=== PATIENT | female | born 1965 | race Caucasian/White ===

== ENCOUNTER 2021-03-18 18:44 | Emergency (ER) | payer OTHER, SELFPAY ==
--- NOTE | ~2021-03-18 | CT_ITS ---
EXAMINATION: CT abdomen pelvis wo con DATE: 03/18/2021 22:49 INDICATION: Epigastric pain TECHNIQUE: Computed tomography (CT) of the abdomen and pelvis was performed without intravenous contr ast. The dose-length product was 947.74 mGy-cm. Automated exposure control and iterative reconstructi on technique were employed. COMPARISON: None. FINDINGS: Lung bases are unremarkable. Heart size normal. No significant pleural or pericardial effus ion. Gallbladder is distended with subtle pericholecystic fatty infiltration, suspicious for cholecys titis. The liver, spleen, pancreas, adrenal glands and kidneys are unremarkable. There is a duodenal diverticulum. No renal stones or hydronephrosis. Nonobstructive bowel gas pattern. No free air or free fluid. Moder ate lumbar spondylosis. IMPRESSION: 1. Gallbladder distention with subtle pericholecystic fatty infiltration. Consider cholecystitis in t he appropriate clinical setting. Consider correlation with ultrasound. Reviewed, dictated and finalized at location A. IMPRESSION: 1. Gallbladder distention with subtle pericholecystic fatty infiltration. Consi marysol cholecystitis in the appropriate clinical setting. Consider correlation wit h ultrasound.
[2021-03-18 18:47] VITALS: BP 141/100; PULSE 93; RESP 20; TEMP 36.6; O2SAT 100
[2021-03-18 19:14] LABS: Basophils Percent Auto 0.2 % (0.2-1.2); Eosinophils Absolute Auto 0.1 K/mm3 (0-0.3); Eosinophils Percent Auto 0.9 % (0-4.4); Hematocrit 36.7 % (37.0-47.0); Hemoglobin 11.3 g/dL (12.0-15.0); Immature Granulocyte Absolute 0.02 K/mm3 (0.00-0.031); Immature Granulocyte Percent A 0.2 % (0-0.5); Lymphocytes Absolute Auto 1.71 K/mm3 (0.9-3.2); Lymphocytes Percent Auto 16.9 % (18.3-44.2); Mean Corpuscular HGB Conc 30.8 g/dl (32-36); Mean Corpuscular Hemoglobin 26.2 pg (26-34); Mean Platelet Volume 9.2 fl (7.4-10.4); Monocytes Absolute Auto 0.5 K/mm3 (0.1-0.6); Neutrophils Absolute Auto 7.8 K/mm3 (1.3-6.7); Neutrophils Percent Auto 76.8 % (45.5-73.1); Platelet Count Result 354 k/mm3 (150-375); Red Blood Count 4.32 M/mm3 (4.2-5.4); Red Cell Distribution Width 13.2 % (11.5-14.5); White Blood Count 10.1 K/mm3 (4.5-10.0)
[2021-03-18 19:26] LABS: Alanine Aminotransferase 16 U/L (4-35); Albumin Level 4.2 g/dL (3.5-5.1); Alkaline Phosphatase 115 U/L (38-126); Anion Gap 8 mmol/L (8-16); Aspartate Amino Transferase 20 U/L (14-36); Bilirubin,Total 0.3 mg/dL (0.2-1.3); Blood Urea Nitrogen 18 mg/dL (7-17); Calcium 9.6 mg/dL (8.4-10.2); Carbon Dioxide 29 mmol/L (22-30); Chloride 100 mmol/L (98-107); Estimated CRCL calculation 46 ml/min; Estimated Glomerular Filt Rate 47; Glucose 175 mg/dL (65-110); Lipase 104 U/L (23-300); Sodium 137 mmol/L (137-145)
[2021-03-18 20:17] LABS: Add Urine Microscopic? YES; Appearance Urine Clear (Clear); Bilirubin Urine Negative (Negative); Blood Urine Negative (Negative); Color Urine Yellow (Yellow); Glucose Urine UA Negative (Negative); Ketones Urine Negative (Negative); Leukocyte Esterase Ur Trace LEU/UL (Negative); Mucus Urine Few /lpf; Nitrate Urine Negative (Negative); Protein Urine 1+ mg/dL (Negative); RBC Urine 0-2 /hpf (0-2); Specific Grav Ur 1.026 (1.001-1.035); Squamous Epithelial Cell Urine Moderate /hpf (Few); Urobilinogen Urine Negative mg/dL (<2.0)
[2021-03-18 20:59] LABS: Troponin I < 0.012 ng/mL (0.000-0.034)
--- NOTE | 2021-03-18 20:59 | ED.ABDPAIN ---
HPI - Abdominal Pain General Chief Complaint: Abdominal Pain Stated Complaint: ABD PAIN Time Seen by Provider: 03/18/21 20:11 Source: patient Mode of arrival: ambulatory Limitations: no limitations History of Present Illness HPI narrative: 55-year-old female Patient has stage I uterine cancer and is scheduled for surgery in 2 weeks although I do not see any imaging in the EMR from here She reports onset of epigastric pain around noon today which might have started after she ate yogurt for a late breakfast but which very clearly got worse around 3:00 after she had a ham and salami sandwich She is nauseated but not vomiting, no diarrhea, no fever, no urinary symptoms She did not try taking anything for her symptoms Reports that now she has some pain radiating to her upper back on the right side as well No prior abdominal operations, she does not smoke, she drinks occasionally but not lately Related Data Home Medications Medication Instructions Recorded Confirmed alprazolam 03/18/21 bupropion HCl mg PO 03/18/21 fluticasone propionate INTRANASAL 03/18/21 insulin glargine-lixisenatide SUBCUT 03/18/21 [Soliqua 100/33] linagliptin [Tradjenta] mg 03/18/21 montelukast mg 03/18/21 omeprazole 03/18/21 Allergies Allergy/AdvReac Type Severity Reaction Status Date / Time No Known Allergies Allergy Mild Verified 03/18/21 20:03 Review of Systems Review of Systems: All systems reviewed & are unremarkable except as noted in HPI and below Constitutional: Constitutional: Reports no additional constitutional complaints, Denies chills, Denies fever(s) and Denies headache(s) Eyes: Eyes: Reports no additional eye complaints and Denies change in vision ENT: Denies headache(s) and Denies sore throat Cardiovascular: Cardiovascular: Denies chest pain and Denies dyspnea Respiratory: Respiratory: Denies cough and Denies dyspnea Gastrointestinal: Gastrointestinal: Reports abdominal pain, Denies diarrhea, Reports nausea and Denies vomiting Genitourinary: Genitourinary: Denies hematuria, Denies urinary frequency, Denies nocturia and Denies dysuria Musculoskeletal: Musculoskeletal: Denies deformity, Denies arthralgias, Denies joint swelling and Denies numbness Integumentary/Breasts: Skin/Breast: Denies rash and Denies wounds Neurologic: Denies headache(s), Denies focal weakness and Denies numbness Psychiatric: Psychiatric: Reports no additional psychiatric complaints Endocrine: Endocrine: Reports no additional endocrine complaints Hematologic/Lymphatic: Hematologic/Lymphatic: Reports no additional hematologic/lymphatic complaints Allergic/Immunologic: Allergic/Immunologic: Reports no additional allergic/immunologic complaints [facility] Social History Social History Gender identity (if verbalized by the patient): Female Exam Const: General: cooperative, no acute distress and alert Orientation/consciousness: patient oriented x3 (alert) HENMT: Head: normal to inspection, normocephalic and atraumatic Ears: external ears normal General nose exam: no epistaxis Eyes: Conjunctivae: conjunctivae normal EOM: EOMs intact bilaterally Neck: Neck: normal visual inspection, supple and no JVD Resp: Effort & Inspection: normal respiratory effort and not labored Auscultation: clear to auscultation bilaterally, no rales, no rhonchi, no wheezes and other (BS =) Cardio: Rate: regular rate Rhythm: regular rhythm Heart sounds: no murmurs GI: Inspection: non-distended GI Palp: Yes Soft to palpation, Yes Tenderness to palpation present (GI), No Guarding due to palpation present (GI) and No Rebound tenderness present Other: Tender to palpation and percussion in the right upper quadrant Skin: General skin exam: normal color and no rashes or lesions noted Neuro: General: patient oriented x3 (alert) and moves all extremities Speech: normal speech Extrem: General: normal to inspection and no pedal edema Psych: Aff
[2021-03-18] MEDS: FAMOTIDINE 20 MG/2 ML VIAL 40 MG IV PUSH (21:06)
[2021-03-18] MEDS: BELLADONNA ALK/PHENOB ELIX 10 ML, MAG HYDROX/ALUMINUM HYD/SIMETH 30 ML, LIDOCAINE HCL 2... PO (21:06)
[2021-03-18] MEDS: LACTATED RINGERS 1,000 ML 999 ML IV CONT (21:06)
[2021-03-18] MEDS: DICYCLOMINE HCL INJ 20 MG/2 ML VIAL IM (21:43)
[2021-03-18] MEDS: ONDANSETRON INJ 4 MG/2 ML VIAL IV PUSH (21:44)
[2021-03-18 21:58] VITALS: BP 152/98; PULSE 71; RESP 20; O2SAT 99
[2021-03-18] MEDS: KETOROLAC 30 MG/ML VIAL (*BKC) IV PUSH (22:59)
[2021-03-19 00:31] VITALS: BP 147/70; PULSE 86; RESP 18; O2SAT 100
[2021-03-19] MEDS: fentaNYL CITRATE INJ (*CRX) 100 MCG/2 ML VIAL IV PUSH (00:32)
[2021-03-19 01:26] VITALS: BP 142/83; PULSE 86; RESP 18; TEMP 36.6; O2SAT 100
== END 2021-03-19 01:27 | disposition home or self-care (01) ==
PROVIDERS: Emergency Provider Emergency Medicine; PCP Family Medicine
DX: K80.50 Calculus of bile duct without cholangitis or cholecystitis without obstruction (principal); C55 Malignant neoplasm of uterus, part unspecified
CPT/HCPCS: 36415; 74176; 80053; 81001; 83690; 84484; 85025; 87086; 87088; 96361; 96372; 96374; 96375; 99284; A9270; J0500; J1885; J2405; J3010; J7120

== ENCOUNTER 2023-09-24 09:00 | Emergency (ER) | payer OTHER, SELFPAY ==
[2023-09-24 09:15] VITALS: BP 155/89; PULSE 92; RESP 16; TEMP 36.7; O2SAT 99
--- NOTE | 2023-09-24 10:03 | ED.EAR ---
HPI - Ear Problem General Chief complaint: Ear Stated complaint: Right Ear Irritation Time Seen by Provider: 09/24/23 10:03 Source: patient Mode of arrival: ambulatory Limitations: no limitations History of Present Illness HPI Narrative: 58 y/o female presented for c/o right ear pressure x6 days. Endorses decreased hearing and post nasal drainage. Pt used candling 2 days ago, with large amount of cerumen removed. denies tinnitus or ear drainage, dizzines, n/v/d/f/c. Complaint: ear pain Related Data Home Medications Medication Instructions Recorded Confirmed alprazolam 0.5 mg tablet 0.5 mg PO DAILY 03/18/21 09/24/23 bupropion HCl 150 mg 24 hr tablet, 150 mg PO DAILY 03/18/21 09/24/23 extended release fluticasone propionate 50 1 spray intranasal DAILY 03/18/21 09/24/23 mcg/actuation nasal spray,suspension insulin glargine 100 10 unit subcut DAILY 03/18/21 09/24/23 unit-lixisenatide 33 mcg/mL subcutaneous pen (Soliqua 100/33) linagliptin 5 mg tablet (Tradjenta) 500 mg PO DAILY 03/18/21 09/24/23 montelukast 10 mg tablet 10 mg PO DAILY 03/18/21 09/24/23 omeprazole 20 mg capsule,delayed 03/18/21 release Allergies Allergy/AdvReac Type Severity Reaction Status Date / Time No Known Allergies Allergy Mild Verified 09/24/23 09:26 Review of Systems Review of Systems: CONSTITUTIONAL: Denies malaise, chills, or fever. EYES: Denies visual changes, redness, or discharge. ENT: Denies sinus pain, and sore throat. Reports ear pain CARDIOVASCULAR: Denies chest pain, palpitations, or edema. RESPIRATORY: Denies cough or dyspnea. GASTROINTESTINAL: Denies abdominal pain, nausea, vomiting, diarrhea SKIN: Denies rash or itching. MUSCULOSKELETAL: Denies myalgia. NEUROLOGIC: Denies headache. All systems reviewed & are unremarkable except as noted in HPI and below PMFSH Social History Social History Gender identity (if verbalized by the patient): Female Comments At time of signature, agree with nursing past medical, surgical, social and family history. There is no relevant family history pertinent to the presenting complaint Exam Narrative: GENERAL: Well-appearing EYES: conjunctivae clear ENT: Nares clear. Mucous membranes moist. Left TM pearly martinez with dull light reflex; Right cerumen impaction. no tragal tenderness. Oropharynx not erythematous without lesions. CHEST: Clear to auscultation, breath sounds equal. No wheezing, rhonchi, rales, or stridor. No respiratory distress, speaks in full sentences. HEART: Regular rate and rhythm. No murmur heard. SKIN: Warm, dry, no rash. NEURO: Alert and oriented x3. PSYCH: Normal mood and affect Course Course Emergency Course: Patient is aware of diagnosis, understands and agrees to treatment plan. Anticipatory guidance given. Patient agrees to follow-up as directed and is aware of reasons to seek care at the emergency department. Portions of this record may have been created with voice recognition software Level of Care: Express Care Visit Vital Signs Vital signs: Vital Signs Temperature 98.0 F 09/24/23 09:15 Pulse Rate 92 09/24/23 09:15 Respiratory Rate 16 09/24/23 09:15 Blood Pressure 155/89 H 09/24/23 09:15 Pulse Oximetry 99 09/24/23 09:15 Oxygen Delivery Room Air 09/24/23 09:15 Temperature 98.0 F 09/24/23 09:15 Pulse Rate 92 09/24/23 09:15 Respiratory Rate 16 09/24/23 09:15 Blood Pressure 155/89 H 09/24/23 09:15 Pulse Oximetry 99 09/24/23 09:15 Oxygen Delivery Room Air 09/24/23 09:32 Reviewed Procedures Ear Wax Removal Right Ear: Ear Wax Removal Date: 09/24/23 Cerumenolytic Used: other (equal parts hydrogen peroxide and warm water) Results: Re-examined: some cerumen remains TM Examination: TM(s) intact, normal appearance Ear Canal Exam: atraumatic Patient Tolerated Procedure: well and no complications
== END 2023-09-24 10:34 | disposition home or self-care (01) ==
PROVIDERS: Emergency Provider Nurse Practitioner Family; PCP Family Medicine
DX: H61.21 Impacted cerumen, right ear (principal); E11.9 Type 2 diabetes mellitus without complications; Z85.3 Personal history of malignant neoplasm of breast; Z90.11 Acquired absence of right breast and nipple
CPT/HCPCS: 69210; 99213; G0463